=== PATIENT | male | born 1990 | race Caucasian/White ===

== ENCOUNTER 2018-08-08 18:24 | Emergency (ER) | payer OTHER ==
[~2018-08-08] VITALS: Ht 177.8 cm; Wt 79.4 kg
[~2018-08-08 18:24] MED LIST: CYCLOBENZAPRINE5 MG PO; DIPHENHIST50 MG PO; FLEXERIL PO; HYDROCODON-ACE1 EAC7 PO; HYDROCODONE-AP1 EAC6 PO; IBUPROFEN 800800 M1 PO; KEFLEX500 MG PO; LIDOCAINE VISC100 M1 SWISH&SPIT; LORTAB 5 MG/5001 TAB PO; NAPROSYN375 MG PO; NAPROSYN500 MG PO; NOHOMEMEDICATIONS; NORCO 5-325 TA1 EACH PO; NORFLEX100 MG PO; PAXIL10 MG; PENICILLIN V P500 MG PO; TOBRADEX ST EYE5 ML OP; TRAMADOL 50 MG50 MG PO; ULTRAM 50MG TAB50 MG PO
[2018-08-08] MEDS ORDERED: IBUPROFEN 800800 M1 PO (18:50)
[2018-08-08 19:06] VITALS: BP 143/72
== END 2018-08-08 19:06 | disposition home or self-care (01) ==
LOC: M.ERS 18:24
DX: S46.812A Strain of other muscles, fascia and tendons at shoulder and upper arm level, left arm, initial encounter (principal); F17.210 Nicotine dependence, cigarettes, uncomplicated; X58.XXXA Exposure to other specified factors, initial encounter; Y93.89 Activity, other specified; Y92.89 Other specified places as the place of occurrence of the external cause; Y99.8 Other external cause status

== ENCOUNTER 2018-12-25 11:45 | Emergency (ER) | payer OTHER ==
[~2018-12-25] VITALS: Ht 180.3 cm; Wt 78.0 kg
[2018-12-25] MEDS ORDERED: NAPROSYN500 MG PO (13:08)
[2018-12-25 13:40] VITALS: BP 000/00
== END 2018-12-25 13:42 | disposition home or self-care (01) ==
LOC: M.ERS 11:45
DX: S86.811A Strain of other muscle(s) and tendon(s) at lower leg level, right leg, initial encounter (principal); M25.551 Pain in right hip; F17.210 Nicotine dependence, cigarettes, uncomplicated; W00.0XXA Fall on same level due to ice and snow, initial encounter; Y93.89 Activity, other specified; Y92.89 Other specified places as the place of occurrence of the external cause; Y99.8 Other external cause status

== ENCOUNTER 2020-01-07 14:51 | Emergency (ER) | payer OTHER ==
[~2020-01-07] VITALS: Ht 180.3 cm; Wt 95.3 kg
[2020-01-07 16:06] VITALS: BP 145/78
== END 2020-01-07 16:07 | disposition home or self-care (01) ==
LOC: M.ERS 14:51
DX: S61.210A Laceration without foreign body of right index finger without damage to nail, initial encounter (principal); S61.212A Laceration without foreign body of right middle finger without damage to nail, initial encounter; F17.210 Nicotine dependence, cigarettes, uncomplicated; W26.8XXA Contact with other sharp object(s), not elsewhere classified, initial encounter; Y93.89 Activity, other specified; Y92.89 Other specified places as the place of occurrence of the external cause; Y99.8 Other external cause status

== ENCOUNTER 2021-01-13 19:12 | Emergency (ER) | payer OTHER ==
[~2021-01-13] VITALS: Ht 180.3 cm; Wt 79.4 kg
[2021-01-13] MEDS ORDERED: NORCO5 PO (21:05)
[2021-01-13] MEDS ORDERED: PENICILLIN V P500 MG PO (21:05)
[2021-01-13 21:41] VITALS: BP 132/86
== END 2021-01-13 21:41 | disposition home or self-care (01) ==
LOC: M.ERS 19:12
DX: S02.5XXA Fracture of tooth (traumatic), initial encounter for closed fracture (principal); X58.XXXA Exposure to other specified factors, initial encounter; Y93.89 Activity, other specified; Y92.89 Other specified places as the place of occurrence of the external cause; Y99.8 Other external cause status

== ENCOUNTER 2021-01-31 17:18 | Emergency (ER) | payer OTHER ==
[~2021-01-31] VITALS: Ht 180.3 cm; Wt 77.1 kg
[~2021-01-31 17:18] MED LIST changes: +NORCO5 PO
[2021-01-31] MEDS ORDERED: AUGMENTIN 875-1 EACH PO (17:30)
[2021-01-31 17:40] VITALS: BP 138/79
== END 2021-01-31 17:41 | disposition home or self-care (01) ==
LOC: M.ERS 17:18
DX: S61.431A Puncture wound without foreign body of right hand, initial encounter (principal); F17.210 Nicotine dependence, cigarettes, uncomplicated; W54.0XXA Bitten by dog, initial encounter; Y93.89 Activity, other specified; Y92.89 Other specified places as the place of occurrence of the external cause; Y99.8 Other external cause status